=== PATIENT | female | born 1960 | race Caucasian/White ===

== ENCOUNTER 2019-08-09 05:38 | Outpatient (CLI) | payer BC ==
[~2019-08-09] VITALS: Ht 170.2 cm; Wt 73.2 kg
== END 2019-08-09 13:59 | disposition home or self-care (01) ==
LOC: PREOP 05:38
PROVIDERS: ATTEND Surgery
DX: Z01.818 Encounter for other preprocedural examination (principal)

== ENCOUNTER 2019-08-16 09:29 | Day surgery (SDC) | payer BC ==
--- NOTE | 2019-08-07 09:46 | HISTORY AND PHYSICAL ---
DATE OF SERVICE: ATTENDING PHYSICIAN: Dr. Snyder. HISTORY OF PRESENT ILLNESS: The patient is a 59-year-old female, who is known to us. She was initially seen in 2013 for a colonoscopy. At that time, she was found to have normal colon and rectum. She does; however, present today in need of another screening colonoscopy. She does report that her mother was diagnosed with colon cancer around the age of 81. She denies any blood in her stool as well as no diarrhea, constipation or any abdominal pain. PAST MEDICAL HISTORY: None. PAST SURGICAL HISTORY: Tonsillectomy at age 5. ALLERGIES: PENICILLIN. MEDICATIONS: None. SOCIAL HISTORY: Negative for smoke. Negative for alcohol. FAMILY HISTORY: Mother, colon cancer, diagnosed around the age of 81, stroke, hypertension. Father, diabetes and myocardial infarction. REVIEW OF SYSTEMS: A well-nourished female in no acute distress. She is not experiencing any shortness of breath or difficulty breathing. No chest pain, palpitations or diaphoresis. No nausea, vomiting or abdominal pain. No diarrhea or constipation. No red blood per rectum. No dark tarry stools. No fever or chills. No recent inadvertent weight loss. All other review of systems are negative. PHYSICAL EXAMINATION: VITAL SIGNS: Blood pressure is 112/60. Current weight is 161.2 at 5 feet 7 inches. CHEST: Clear. Good breath sounds bilaterally. HEART: Regular, no murmurs. EXTREMITIES: No lower extremity edema. Negative Homans sign. HEENT: No scleral icterus. No cervical lymphadenopathy. ABDOMEN: Soft, nontender, nondistended. SKIN: Warm, dry and pink. NEUROLOGIC: Awake, alert and oriented x3. ASSESSMENT AND PLAN: A 59-year-old female with family history of colon cancer with mother having the disease. At this time, we will recommend proceeding with a screening colonoscopy. The risks and benefits of the procedure as well as the procedure and home care instructions were explained to the patient. The patient verbalized understanding of instructions and agrees to proceed as planned. At this time, we will proceed with scheduling the patient for a screening colonoscopy. Job ID: [id number] DocumentID: [id number] Dictated Date: 07/31/2019 15:29:29 Chlorobutadiene Scrubber Operator Date: 07/31/2019 15:45:53 Dictated By: MARGARITO BAGLEY APRN
[~2019-08-16] VITALS: Ht 170.2 cm; Wt 73.2 kg
[2019-08-16] VITALS (14 sets, daily range): BP systolic 97–121; BP diastolic 55–82
[2019-08-16] MEDS ORDERED: LACTATED RINGERS 0 ML IV ONE (09:34)
[2019-08-16] MEDS ORDERED: NS IV 500 ML 500 ML IV PRN (09:36)
[2019-08-16] MEDS ORDERED: NS IV 500 ML 500 ML ONE (09:39)
[2019-08-16] MEDS ORDERED: fentaNYL INJECTION 100 MCG/2 ML AMP IVP ONE (09:45)
[2019-08-16] MEDS ORDERED: LIDOCAINE JELLY 2% 6 ML SYRINGE MM PRN (09:45)
--- NOTE | 2019-08-16 09:52 | Conscious Sedation/ASA ---
Conscious Sedation Pre-Proced Time 09:50 ASA Score 2 For ASA 3 and 4: Consider anesthesia and medical clearance. Also, for patients with a history of failed moderate sedation consider anesthesia. Airway Lungs Heart ASA score ASA 1: a normal healthy patient ASA 2: a patient with a mild systemic disease (mid diabetes, controlled hypertension, obesity ASA 3: a patient with a severe systemic disease that limits activity (angina, COPD, prior Myocardial infarction) ASA 4: a patient with an incapacitating disease that is a constant threat to life (CHF, renal failure) ASA 5: a moribund patient not expected to survive 24 hrs. (ruptured aneurysm) ASA 6: a declared brain- patient whose organs are being harvested. For emergent operations, add the letter E after the classification Mallampati Classification Grade 2 Sedation Plan Analgesia, Amnesia, Plan communicated to team members, Discussed options with patient/fam, Discussed risks with patient/fam The patient is an appropriate candidate to undergo the planned procedure, sedation, and anesthesia. The patient immediately re-assessed prior to indication. CARI BRAND MD Aug 16, 2019 09:52 POS
--- NOTE | 2019-08-16 09:53 | Progress Note-Pre Operative ---
Pre-Operative Progress Note H&P Reviewed The H&P was reviewed, patient examined and no changes noted. Date Seen by Provider: Aug 16, 2019 Time Seen by Provider: 09:50 Date H&P Reviewed: Aug 16, 2019 Time H&P Reviewed: 09:50 Pre-Operative Diagnosis: screening/family hx colon ca CARI BRAND MD Aug 16, 2019 09:53 POS
--- NOTE | 2019-08-16 09:54 | Discharge Inst-Surgical ---
D/C Lap Instructions-SUNDAY Follow Up Activity as tolerated High Fiber Diet 25g or more per day Avoid Alcohol, Caffeine, Spicy [place] and Acid foods. Drink 64 fluid oz or more of fluids per day. Symptoms to Report: Fever over 101 degree F, Nausea/Vomiting If any problems/questions: Contact your physician or go to Emergency Room CARI BRAND MD Aug 16, 2019 09:54 POS
[2019-08-16] MEDS ORDERED: HYDROcodone/APAP 5 MG/325 MG (LORTAB) TAB PO PRN (10:00)
[2019-08-16] MEDS ORDERED: ACETAMINOPHEN 325 MG TABLET PO PRN (10:00)
[2019-08-16] MEDS ORDERED: morphine INJ 10 MG/ML 1ML (SYR OR VIAL) IVP PRN ×2 (10:00)
[2019-08-16] MEDS ORDERED: ONDANSETRON 4 MG/2 ML (SDV) Z0FRAN IVP PRN (10:00)
[2019-08-16] MEDS ORDERED: MIDAZOLAM 5 MG/5 ML (VERSED) VIAL ONE ×2 (10:56→11:19)
[2019-08-16] MEDS ORDERED: fentaNYL INJECTION 100 MCG/2 ML AMP ONE ×2 (10:56→11:18)
[2019-08-16] MEDS ORDERED: LIDOCAINE JELLY 2% 6 ML SYRINGE ONE (10:56)
[2019-08-16] MEDS: MIDAZOLAM 5 MG/5 ML (VERSED) VIAL IV PRN ×4 (11:10→11:26)
--- NOTE | 2019-08-16 12:51 | Progress Note-Post Operative ---
Post-Operative Progess Note Surgeon (s)/Hospital Attendant (s) Surgeon CARI BRAND MD Hospital Attendant: none Pre-Operative Diagnosis screening/family hx colon ca Post-Operative Diagnosis mild chronic stage 1-2 ext and int hemorrhoids. Procedure & Operative Findings Date of Procedure 08/16/19 Procedure Performed/Findings colonoscopy Anesthesia Type cs Estimated Blood Loss Estimated blood loss (mL): minimal Specimens/Packing Specimens Removed none CARI BRAND MD Aug 16, 2019 12:51 POS
--- NOTE | 2019-08-16 15:50 | OPERATIVE REPORT ---
DATE OF SERVICE: 08/16/2019 ATTENDING PRIMARY CARE PHYSICIAN: Vin Snyder DO PREOPERATIVE DIAGNOSIS: Screening colonoscopy, family history of colon cancer. POSTOPERATIVE DIAGNOSIS: Mild chronic stage II external and internal hemorrhoids. PROCEDURE: Colonoscopy. SURGEON: Cari Bourgeois MD ANESTHESIA: Conscious sedation. ESTIMATED BLOOD LOSS: Minimal. FINDINGS: Mild chronic stage II external and internal hemorrhoids. Remainder of the colon and rectum were normal. DISPOSITION: The patient tolerated the procedure well. INDICATIONS: The patient is a 59-year-old female known to us. We had initially seen her in 2012 for a screening colonoscopy. The colon was found to be normal. She does have a family history of colon cancer with her mother being diagnosed with the disease at age 81. She does not report any major issues with diarrhea nor constipation as well as no red blood per rectum nor any dark tarry stools. DESCRIPTION OF PROCEDURE: The patient was brought to the endoscopy suite, laid in left lateral decubitus position. After adequate IV pain and sedative medications and conscious sedation anesthesia, a digital rectal examination was performed, which revealed mild chronic stage II external and internal hemorrhoids, not actively edematous nor inflamed and no bleeding. Normal sphincter tone was felt and there were no palpable masses. Prostate gland was palpable and appeared normal. The endoscope was then intubated to the anus and rectum was gently insufflated. The endoscope was then advanced to the valves of [place] of the rectum with no polyps or any neoplasms identified. Through the sigmoid colon, no diverticulosis identified. The endoscope was then advanced to the remainder of the descending, transverse and ascending colon to the cecum. These segments were normal. There were no polyps or any neoplasms identified throughout the colon or rectum. Endoscope was then slowly withdrawn while taking a second look and suctioning of residual air with no additional findings. The patient tolerated the procedure well. We will recommend continued medical management with high fiber diet with 25 grams of fiber per day as well as significant amounts of water to promote soft stools on a daily basis. Due to her first degree of family history of colon cancer, we will recommend followup colonoscopy approximately every 5 years. Job ID: [id number] DocumentID: [id number] Dictated Date: 08/16/2019 11:41:27 Confectionery Cooker Date: 08/16/2019 15:49:39 Dictated By: CARI BOURGEOIS MD
== END 2019-08-16 12:35 | disposition home or self-care (01) ==
LOC: ENDO 09:29
PROVIDERS: ATTEND Surgery
DX: Z12.11 Encounter for screening for malignant neoplasm of colon (principal); K64.1 Second degree hemorrhoids; Z80.0 Family history of malignant neoplasm of digestive organs; Z88.0 Allergy status to penicillin